=== PATIENT | female | born 1975 | race African-American/Black ===

== ENCOUNTER 2017-06-22 04:48 | Emergency (ER) | payer MEDICARE ==
--- NOTE | ~2017-06-22 | ER ---
PATIENT'S NAME: DEVANG CADET [facility] AGE: 41 Y [address] ROOM: [place] [address] LOCATION: [facility] ADMIT DATE: 06/22/2017 ER/Outpatient Report DISCHARGE DATE: 06/22/2017 FAMILY PHYSICIAN: Physician, Unknown ATTENDING PHYSICIAN: Collins Gore ADDENDUM: To Dr. Gore's dictation. Please see his dictation for chief complaint, history of present illness, past medical history, past surgical history, social history, allergies, medications, review of systems, physical exam, and follow up on the patient's laboratory analysis. Briefly, the patient does have a history of seizures. She has not been taking her seizure medicine for the past 5-6 days due to some insurance issues that she is trying to work out. She normally does take Keppra. This seizure was like her previous seizures. The patient's laboratory analysis is reviewed by myself. CMP is unremarkable except for potassium 2.7. LFTs normal. Cardiac enzymes are normal. CRP is normal. TSH is 4.89. CBC is normal. Coags are normal. Serum hCG is less than 1.0. I have discussed results with the patient. I have given the patient 20 mEq of potassium chloride IV as well as 60 mEq of potassium p.o. She is given 1 g of Tylenol. She was also given Keppra 1000 mg orally. I have discussed I would recommend she follows up with primary care doctor in 3 to 4 days for a followup evaluation as well as recheck her laboratory analysis. She is going to be working on getting her insurance situation set up. I have discussed return to care instructions including worsening symptoms or any other concerns to return to the emergency department as soon as possible. The patient is agreeable without further questions at this time. DISPOSITION: The patient discharged home in good condition. DO EDWARD GLASS/anat /[id number] d: 06/22/17 1637 t: 08/26/17 0750, OUTPATIENT REPORT
--- NOTE | ~2017-06-22 | ER ---
PATIENT'S NAME: DEVANG CADET [facility] AGE: 41 Y [address] ROOM: [place] [address] LOCATION: [facility] ADMIT DATE: 06/22/2017 ER/Outpatient Report DISCHARGE DATE: 06/22/2017 FAMILY PHYSICIAN: Physician, Unknown ATTENDING PHYSICIAN: Collins Gore Time of Arrival: Time of Evaluation: Admission date and time documented in the medical record. I saw the patient at 0455 hours. CHIEF COMPLAINT: Seizure activity. HISTORY OF PRESENT ILLNESS: This patient is a 41-year-old female, who is brought to the emergency room by paramedics via ambulance for evaluation following onset of a seizure activity. The patient has a known seizure disorder. She is normally on Keppra 1000 mg twice a day. She has not been taking it because of Medicaid issue. She has not taken her medicines for 5 to 6 days. She had had a grand-mal seizure lasting about 2 minutes. She is postictal on arrival of the paramedics. They brought her to the emergency room via ambulance. On arrival, the patient was awake and responsive. Mildly postictal that cleared while she was here in the emergency department. She has a right-sided headache. No visual or auditory disturbance, lateralizing weakness, numbness, tingling, or loss of function. No eyes, ears, nose, throat, neck, or spine pain. No chest pain or shortness of breath. No abdominal pain. No nausea, vomiting, or diarrhea. No urinary symptoms. No joint or muscle swelling, redness, or pain. No skin eruptions or rash. No recent colds, coughs, flus, fever, chills, or sweats. She does have a history of TIA, CVA along with a seizure disorder. No known endocrine problems. No psychiatric issues. HOME MEDICATIONS: See attached medication list. ALLERGIES: SUDAFED, SULFA, AND PENICILLIN. SOCIAL HISTORY: Nonsmoker. Occasional intake of alcohol. SIGNIFICANT PAST MEDICAL HISTORY: 1. Transient ischemic attack. 2. Cerebrovascular accident. 3. Seizure disorder. 4. Hypertension. PATIENT'S NAME: DEVANG CADET [facility] AGE: 41 Y [address] ROOM: [place] [id number] LOCATION: [facility] ADMIT DATE: 06/22/2017 ER/Outpatient Report DISCHARGE DATE: 06/22/2017 FAMILY PHYSICIAN: Physician, Unknown ATTENDING PHYSICIAN: Collins Gore 5. Carotid occlusive disease. PAST SURGICAL HISTORY: Operations: 1. delivery. 2. Brain surgery. 3. PEG tube placement and removal. 4. Abdominal wall foreign body removal. REVIEW OF SYSTEMS: All systems reviewed by me are negative with the exception of those discussed in the history of the present illness. PHYSICAL EXAMINATION: VITAL SIGNS: Temperature 98.1, tympanic; pulse 90; respirations 14; blood pressure 165/96; and O2 saturation on room air is 96%. Gabbs Coma Scale was 15. HEENT: Head; normocephalic. No abrasion, contusion, laceration, or swelling of the scalp or face. Eyes; extraocular muscles intact. PERRL. Ears, Nose, Throat: Clear. Mucous membranes moist. Teeth, jaw intact. NECK: No nuchal rigidity. No thyromegaly or cervical lymphadenopathy. Range of motion intact. No tenderness. SPINE: Nontender. No deformity. LUNGS: Clear. Good air flow. No rales, rhonchi, or wheezes. HEART: Regular. Pulses are palpable. ABDOMEN: Soft, nontender. Good bowel tones. No organomegaly or abnormal mass palpable. No CVA tenderness. EXTREMITIES: Intact. NEUROLOGIC: Neurovascularly intact. No lateralizing signs. Currently on my exam, she had no evidence of postictal state. SKIN: Clear. LABORATORY DATA AND IMAGING STUDIES: White count 7600, 52 segs, 33 lymphs, 10 monos, and 5 eos. Hemoglobin is 13.1 with a hematocrit of 36.5, and platelet count is 197,000. I did go ahead and order CMS, cardiac enzymes, TSH, CRP, and a prothrombin time order is also pending. IMPRESSION: 1. Acute seizure activity with a known seizure disorder. 2. Hypertension. 3. History of transient ischemic attack and cerebrovascular accident. PLAN: I did transfer the patient's care over to Dr. Pelletier at shift change. I asked PATIENT'S NAME: DEVANG CADET [facility] AGE: 41 Y [address] ROOM: [place] [address] LOCATION: [facility] ADMIT DATE: 06/22/2017 ER/Outpatient Report DISCHARGE DATE: 06/22/2017 FAMILY PHYSICIAN: Physician, Unknown ATTENDING PHYSICIAN: Collins Gore Dr. to follow up with the patient's laboratory and study results, final diagnosis, and treatment plan. MD SANTY CAMARGO/jimmiel /[id number] d: 06/22/17 1215 t: 06/22/17 1810, OUTPATIENT REPORT
[2017-06-22 05:44] LABS: BASOPHIL % 0.4 %; EOSINOPHIL # 0.4 K/uL (0.0-0.5); EOSINOPHIL % 4.8 %; HEMATOCRIT 36.5 % (33.0-46.0); HEMOGLOBIN 13.1 g/dL (10.0-15.0); IMMATURE GRANULOCYTE % 0.4 %; LYMPHOCYTE # 2.5 K/uL (0.8-4.0); LYMPHOCYTE % 32.6 %; MCH 28.2 pg (27.0-34.0); MCHC 35.9 gm/dL (32.0-36.5); MCV 78.7 fl (83.0-98.0); MONOCYTE # 0.7 K/uL (0.0-1.0); MONOCYTE % 9.8 %; MPV 9.4 fl (9.4-12.4); NEUTROPHIL # (ANC) 3.9 K/uL (1.8-7.8); NRBC % 0 /100WBC (0-0.00); PLATELET COUNT 197 K/uL (150-450); RBC 4.64 M/uL (3.50-5.50); RDW-CV 13.4 % (11.9-14.6); WBC 7.6 K/uL (4.0-11.0)
[2017-06-22 05:53] LABS: INR - (THERAPEUTIC) 1.03 (0.92-1.07); PROTIME 10.8 SECONDS (9.8-11.4)
[2017-06-22 06:03] LABS: ALBUMIN 3.4 gm/dL (3.5-5.0); ALK PHOS 65 IU/L (33-138); ALT 20 IU/L (12-78); ANION GAP 11.7 (10.0-19.0); AST 14 IU/L (10-40); BLOOD UREA NITROGEN 7 mg/dL (6-24); CALCIUM 8.5 mg/dL (8.5-10.5); CHLORIDE 110 mMol/L (96-110); CO2 23 mMol/L (22-32); CPK 208 IU/L (21-215); CREATININE 0.9 mg/dL (0.5-1.1); POTASSIUM 2.7 mMol/L (3.7-5.1); SODIUM 142 mMol/L (135-145); TOTAL BILIRUBIN 0.5 mg/dL (0.0-1.5); TOTAL PROTEIN 7.5 g/dL (6.0-8.4)
== END 2017-06-22 09:02 | disposition disaster alternative care site (69) ==
LOC: GMED 04:48
PROVIDERS: Emergency Medicine
DX: G40.909 Epilepsy, unspecified, not intractable, without status epilepticus (principal); I10 Essential (primary) hypertension; I65.29 Occlusion and stenosis of unspecified carotid artery; Z86.73 Personal history of transient ischemic attack (TIA), and cerebral infarction without residual deficits; Z88.0 Allergy status to penicillin; Z88.2 Allergy status to sulfonamides; Z88.8 Allergy status to other drugs, medicaments and biological substances; Z98.890 Other specified postprocedural states; Z79.899 Other long term (current) drug therapy
CPT/HCPCS: J3480; J7040

== ENCOUNTER → 2017-06-22 | Outpatient (CLI) | payer MEDICARE | END | disposition disaster alternative care site (69) | LOC: GAMB 04:19 | DX: G40.409 Other generalized epilepsy and epileptic syndromes, not intractable, without status epilepticus (principal); I10 Essential (primary) hypertension; R41.0 Disorientation, unspecified; Z79.899 Other long term (current) drug therapy | CPT/HCPCS: A0425; A0429 ==